=== PATIENT | male | born 1935 | race Caucasian/White ===

== ENCOUNTER 2019-03-11 16:01 | Emergency (ER) | payer OTHER ==
[~2019-03-11] VITALS: Ht 175.3 cm; Wt 93.0 kg
[~2019-03-11 16:01] MED LIST: COZAAR100 MG; HUMULIN 70100 UNIT/2; METFORMIN HCL850 MG; NORVASC10 MG
== END 2019-03-11 17:47 ==
LOC: ER 16:01
DX: I10 Essential (primary) hypertension (principal)

== ENCOUNTER → 2021-07-22 | Emergency (ER) | payer OTHER ==
[~2021-07-22] VITALS: Ht 175.3 cm; Wt 98.0 kg
[~2021-07-22] MED LIST changes: +ADULT LOW DOSE81 M1 PO; +ATORVASTATIN CA40 MG PO; +AVAPRO300 MG PO; +GLIPIZIDE XL5 MG PO; +HUMULIN 70100 UNIT/2 SUBCUTANEO
== END | disposition home or self-care (01) ==
LOC: ER 10:50
DX: I10 Essential (primary) hypertension (principal)